=== PATIENT | female | born 1930 | race Caucasian/White ===

== ENCOUNTER 2016-09-20 15:37 | Emergency (ER) | payer OTHER, MEDICARE ==
--- NOTE | 2016-09-20 18:58 | DIAGNOSTIC IMAGING REPORT ---
PROCEDURE: CT ABD/PELVIS WITH CONTRAST INDICATION: Right flank pain. TECHNIQUE: 100 ml of Isovue 300 were injected intravenously and axial images were obtained of the entire abdomen and pelvis with sagittal and coronal reformations. COMPARISON: None. FINDINGS: ABDOMEN: Findings suggest moderate to marked mucosal thickening of the a ventral gastric antrum with possible ulcer. Bowel pattern is otherwise normal. Gallbladder, liver, spleen, pancreas, kidneys (1.8 cm simple left renal cyst), and aorta (moderate calcified atheromatous changes) are normal. Bowel pattern is normal, including appendix. Mild biconvex scoliosis with marked degenerative changes of the lumbar spine. Mild to moderate parenchymal scarring at the lung bases PELVIS: Uterus and adnexal structures are normal. No evidence of free fluid. IMPRESSION: 1. Findings suggest mucosal thickening of the ventral gastric antrum with possible gastric ulcer. Considered peptic ulcer disease or neoplastic ulcer. 2. Mild biconvex scoliosis with marked degenerative changes of the lumbar spine. 3. Otherwise negative CT abdomen and pelvis. 4. Findings discussed with PHILLIP Kidd. All CT scans at this facility use dose modulation, iterative reconstruction, and/or weight-based dosing when appropriate to reduce radiation dose to as low as reasonably achievable.
--- NOTE | 2016-09-20 19:26 | ED NURSING NOTES ---
Clinical Report - Nurses [facility] [address] [place] [address] 09/20/2016 15:38 Patient: JOSE STEVENSON TRIAGE Triage time 16:02. Acuity: LEVEL 3. Chief Complaint: BACK PAIN. Alert. No acute distress. BUCK COMA SCORE: Buck Coma Scale: 15- eyes open spontaneously (4); best verbal response- oriented x 4 (5); best motor response- obeys commands (6). --16:15 Rachna Hinton R.N. 16:02 09/20/16. BP: 160/84. HR: 72. RR: 18. O2 saturation: 98% on room air. Temp: 98.1 F (oral). Pain level now: 10/12. --16:15 Rachna Hinton R.N. Chief Complaint: (Dull back pain all across lower back, radiating around to abdomen RLQ. Started when patient had a GLF at [facility] around 2.5 weeks ago. Patient had hands full, hand hand on car door, slipped, and fell.). --17:10 Michael Cox R.N. Weight: 59.4 kg stated. Height/Length: 64 inches Per Patient. BMI: 22.5. --16:07 Rachna Hinton R.N. Medications ASA Oral 81 mg, daily. --16:09 Rachna Hinton R.N. Calcium 500 Oral. --16:09 Rachna Hinton R.N. Fluticasone Propionate Nasal, daily. --16:10 Rachna Hinton R.N. Folic Acid Oral (Tablet 400 mcg), daily. --16:10 Rachna Hinton R.N. Glucosamine Oral (Capsule 500 mg), daily. --16:10 Rachna Hinton R.N. Vicodin Oral, as needed. --16:11 Rachna Hinton R.N. Lovastatin Oral (Tablet 40 mg), daily. --16:11 Rachna Hinton R.N. Methocarbamol Oral (Tablet 500 mg), 3x a day as needed. --16:11 Rachna Hinton R.N. Naproxen Oral 375 mg, 2x a day. --16:12 Rachna Hinton R.N. Omeprazole Oral 20 mg, daily. --16:12 Rachna Hinton R.N. PARoxetine HCl Oral (Tablet 20 mg), daily. --16:12 Rachna Hinton R.N. Salsalate Oral (Tablet 500 mg), bid. --16:13 Rachna Hinton R.N. Sucralfate Oral 1 gm, 4x a day. --16:13 Rachna Hinton R.N. Allergies Sulfa Antibiotics. --16:05 Rachna Hinton R.N. History Arrived by private vehicle. Historian: patient. Unaccompanied. Primary physician ([place]). Onset. (about 3 weeks ago). History of recent trauma- fall. Occurred at a store. SOCIAL HX: Never smoker. Regular alcohol use; consumes liquor daily. No drug use. FALL RISK ASSESSMENT: Fall risk assessment completed. No fall risk identified. FUNCTIONAL ASSESSMENT: Functional assessment: no impairments noted. LEARNING NEEDS ASSESSMENT: The learning needs assessment revealed no barriers. --16:15 Rachna Hinton R.N. Treatment APPLICATIONS SUPPORT SPECIALIST: (prescribed vicodin prn). --17:10 Michael Cox R.N. PROBLEMS: Reflux. Hyperlipidemia. Depression. Arthritis. Ulcer. --16:07 Rachna Hinton R.N. ADDITIONAL SURGERIES: no known surgeries. Assessment GENERAL / NEURO / PSYCH: Alert. Oriented X 4. Appears in no acute distress. Patient appears calm and cooperative. RESPIRATORY: Respirations not labored. SKIN: Skin is warm and dry. --16:15 Rachna Hinton R.N. Interventions ID and allergy band on patient. To waiting room. --16:15 Rachna Hinton R.N. PHYSICAL ASSESSMENT Ambulatory to room. GENERAL / NEURO / PSYCH: Alert. Oriented X 4. Appears in pain. RESPIRATORY: Respirations not labored. Chest nontender. Breath sounds within normal limits. CVS: Normal heart rate and rhythm. Capillary refill less than 2 seconds. GI / : Abdomen soft. Abdominal tenderness (radiating pain to the RLQ from back). Bowel sounds within normal limits. EXTREMITIES: Sensation intact in extremities. ROM of extremities within normal limits. BACK: Normal inspection of the neck and back. No neck or back tenderness. ROM of neck and back within normal limits. --17:14 Michael Cox R.N. NURSING PROGRESS NOTES The plan of care for this patient has been created. Patient gowned. Head of bed elevated. Reassurance given. Two patient identifiers checked. Call light placed in reach. Side rails up x 1. Bed placed in lowest position. Brakes of bed on. Patient ready for evaluation- chart flagged and ED physician notified. --17:11 Michael Cox R.N. 17:14 09/20/16. BP: 151/71. HR: 73. RR: 15. O2 saturation: 100% on room air. Temp: deferred. Pain level now: 10/12. --17:17 Michael Cox R.N. ( Spoke with patient about placing an IV for access and to draw labs on basis of protocol. Patient stated she had blood drawn at clinic earlier today and prefers to not have an IV here in the ED. Left room and located paperwork faxed from [email or web address]. Patient had CMP drawn and processed today, 09/20/16. Paperwork is on chart. No IV placed in patient.). --17:41 Michael Cox R.N. 18:18 09/20/2016 Site #1 started via IV in the left antecubital space with an 20g angiocath, with aseptic technique and good blood return; one attempt. Saline lock flushed with saline. --18:24 Michael Cox R.N. 18:24 09/20/2016 Toradol IVP 30 mg given over 2 minute(s) via site #1. Allergies verified and confirmed 5 rights. IV patency established. IV site checked: no pain, redness, or swelling. IV flushed thoroughly pre- and post-medication administration. IVP given by RN. --18:24 Michael Cox R.N. Patient transported to CT by stretcher with tech. --18:27 Michael Cox R.N. Patient returned from CT by stretcher with tech. (18:40). --18:49 Michael Cox R.N. Care transferred and report given (report given to ANJU Wilcox (at 1918)). --19:24 Michael Cox R.N. 19:48 09/20/2016 GI COCKTAIL WHITE (Simethicone) PO Oral Suspension 30 mL given. Allergies verified and confirmed 5 rights. --19:53 Kimberlee Marley R.N. DISPOSITION / DISCHARGE 19:48 09/20/2016 Site #1 removed upon discharge. Catheter intact. Bandage applied. --19:53 Kimberlee Marley R.N. Departure time: 19:50 Sep 20 2016. Condition at departure: improved. No learning barriers present. Discharge instructions provided and reviewed with the patient. Reviewed medication(s) side effects, precautions, dosing and course information. Prescription(s) given to the patient. Reviewed referral to a rehabilitation team lead for followup. Patient verbalized understanding. Written instructions provided in Tunisian. The patient was discharged home. She left the Emergency Department ambulatory and via private vehicle. Patient driving. FALL RISK ASSESSMENT: Fall risk assessment completed. No fall risk identified. --19:55 Kimberlee Marley R.N. 19:53 09/20/16. BP: 169/72. HR: 62. RR: 16. O2 saturation: 100%. Pain level now: 5/10. --19:55 Kimberlee Marley R.N. Locked/Released at 09/22/2016 13:17 by Kimberlee Marley R.N.
--- NOTE | 2016-09-20 19:26 | ED CLINICAL REPORT ---
Clinical Report - Physicians/Mid Levels [facility] [address] [place] [address] 09/20/2016 15:38 Patient: JOSE STEVENSON Time Seen: 17:46; initial patient contact, initial documentation, patient care assumed. Arrived- By private vehicle. Historian- patient. HISTORY OF PRESENT ILLNESS Chief Complaint: BACK PAIN. It is described as being moderate in degree and in the area of the mid lumbar spine and lower lumbar spine and radiating to the abdomen. The quality is noted to be "pain". Modifying factors. Not worsened by anything. Not relieved by anything. Onset- about 2 1/2 weeks ago and it is still present. No bladder dysfunction, bowel dysfunction, sensory loss or motor loss. Additional history - denies any new injury/trauma. Patient notes an injury but denies injury to the head or neck. Mechanism of injury- she fell while walking. (store). No other injury. Similar symptoms previously: None. Recent medical care: The patient was seen recently in the office. ( this is 5th dr visit for same thing, went to 4 other office visits, after fall, xrays done, no fx, still hurting, so f/u visit they did mri, and they found bulging disc, still hurting so went back, no better so went again today, that dr told her to go to er, blood work was normal, and he did not know what else to do, has f/u with ortho for her back). REVIEW OF SYSTEMS No difficulty with urination, urinary frequency, hematuria, difficulty breathing or chest pain. She has had moderate, constant abdominal pain. The pain is described as located in the right upper quadrant, epigastrium and left upper quadrant. All systems otherwise negative, except as recorded above. PAST HISTORY See nurses notes. PROBLEMS: Reflux. Hyperlipidemia. Depression. Arthritis. Ulcer. --16:07 Rachna Hinton R.N. ADDITIONAL SURGERIES: no known surgeries. SOCIAL HISTORY Never smoker. Heavy alcohol use; consumes liquor daily. No drug use. No recent travel. Is a local resident. FAMILY HISTORY Negative. ADDITIONAL NOTES The nursing notes have been reviewed with agreement regarding the chief complaint, HPI, ROS, PMH and patient medications and allergies. PHYSICAL EXAM Vital Signs: 09/20/2016 16:02 BP: 160/84. HR: 72. RR: 18. O2 saturation: 98%. Temp: 98.1 F. Pain level now: 8. Have been reviewed as normal and appear to be correct. Appearance: Alert. No acute distress. HEENT: Normal external inspection. Eyes: Pupils equal, round and reactive to light. Neck: Normal inspection. Neck nontender. Painless ROM. CVS: Heart sounds normal. Pulses normal. Respiratory: No respiratory distress. Breath sounds normal. Abdomen: No visible injury. Soft and nontender. Bowel sounds normal. No organomegaly. No mass. Back: Normal inspection. No tenderness. Painless ROM. Skin: Skin warm and dry. Normal skin color. No rash. Normal skin turgor. Extremities: Extremities exhibit normal ROM. Extremities nontender. Neuro: Oriented X 3. Mood/affect normal. No motor deficit. No sensory deficit. LABS, X-RAYS, AND EKG CT Abdomen: . IMPRESSION: 1. Findings suggest mucosal thickening of the ventral gastric antrum with possible gastric ulcer. Considered peptic ulcer disease or neoplastic ulcer. 2. Mild biconvex scoliosis with marked degenerative changes of the lumbar spine. 3. Otherwise negative CT abdomen and pelvis. 4. Findings discussed with PHILLIP Kidd. All CT scans at this facility use dose modulation, iterative reconstruction, and/or weight-based dosing when appropriate to reduce radiation dose to as low as reasonably achievable. Electronically Final signed by:Rudi Mejia MD 09/20/2016 6:57:52 PM. The study was interpreted by the radiologist and discussed with the radiologist. Interpretation time: 18:55. Laboratory Tests: UA-Culture if indicated: (JOSE M: 09/20/2016 17:02) ( MsgRcvd 09/20/2016 17:54) Final results Test Result Flag Units (Reference) URINE COLOR YELLOW URINE APPEARANCE CLEAR URINE GLUCOSE NEGATIVE (NEGATIVE) URINE BILIRUBIN NEGATIVE (NEGATIVE) URINE KETONE TRACE (NEGATIVE) URINE SPECIFIC GRAVITY 1.025 (1.010-1.030) URINE PH 6.0 (5.0-8.0) URINE PROTEIN NEGATIVE (NEGATIVE) URINE UROBILINOGEN 0.2 EU/dL (0.2-1.0) URINE NITRITE NEGATIVE (NEGATIVE) URINE BLOOD NEGATIVE (NEGATIVE) URINE LEUK ESTERASE NEGATIVE (NEGATIVE) URINE RBC NONE SEEN rbc/hpf (0-1) URINE WBC 0-1 wbc/hpf (0-1) URINE EPITHELIAL CELLS 0-1 EPI/hpf (0-5) URINE BACTERIA NONE SEEN (NONE SEEN) URINE COMMENT CULT NOT INDICATED URINE CULTURES ARE SET-UP BASED ON THE FOLLOWING CRITERIA:POSITIVE NITRITEPOSITIVE LEUKOCYTE ESTERASEGREATER THAN 10 WHITE BLOOD CELLSMODERATE (2+) OR GREATER BACTERIA CBC w Diff: (JOSE M: 09/20/2016 18:40) ( MsgRcvd 09/20/2016 19:00) Final results Test Result Flag Units (Reference) WHITE BLOOD COUNT 7.1 K/uL (4.5-11.5) RED BLOOD COUNT 3.85 L M/uL (4.00-5.20) HEMOGLOBIN 12.1 gm/dL (12.0-16.0) HEMATOCRIT 35.9 L % (36.0-46.0) MEAN CELL VOLUME 93 fL (80-100) MEAN CORPUSCULAR HGB 32 pg (26-34) MEAN CORPUSCULAR HGB CONC 34 g/dL (31-37) RED CELL DISTRIBUTION WIDTH 15.8 H % (11.6-14.8) PLATELET COUNT 229 K/uL (150-400) NEUTROPHIL % 65.0 % (50-75) LYMPH % 21.5 L % (25-40) MONO % 9.1 % (3-14) EOSINOPHIL % 3.7 % (0-4) BASOPHIL % 0.7 % (0-2) . PROGRESS AND PROCEDURES Course of Care: CMP results reviewed from clinic today, normal. 09/20/2016 17:14 BP: 151/71. HR: 73. RR: 15. O2 saturation: 100%. Pain level now: 8/10. Vital Signs: have been reviewed as normal and appear to be correct. Patient counseled in person regarding the patient's stable condition, test results and diagnosis. 19:08. Differential Diagnosis: I considered gastritis, gastroenteritis, peptic ulcer disease, gastroesophageal reflux disease, acute appendicitis, diverticulitis, colon cancer, Crohn's disease, intussusception, obstipation, biliary colic, cholecystitis, cholelithiasis, hepatitis, pancreatitis, common bile duct obstruction and ureterolithiasis as a possible cause of abdominal pain in this patient. This is a partial list of diagnoses considered. Above considerations are based on history, physical exam, reassessment, laboratory data and other information. Differential diagnosis was discussed with patient and patient's family. Disposition: Discharged home in good and improved condition (19:25). Condition: good and stable. CLINICAL IMPRESSION Acute abdominal pain of undetermined cause. INSTRUCTIONS Warnings: GENERAL WARNINGS: Return or contact your physician immediately if your condition worsens or changes unexpectedly, if not improving as expected, or if other problems arise. worsening symptoms. Prescription Medications: Protonix 40 mg tablets: Take 1 tablet orally once daily. Dispense thirty (30). No refills. Substitution is permissible. Understanding of the discharge instructions verbalized by patient. Follow-up with: Hua Emanuel MD, Gastroenterology, , [facility] , [place], [address]; Galileo Quiroz MD, Gastroenterology, [address] [place] [address], [address] [place] [address], [address], [place], [address]; Jennie Mautte MD, Gastroenteroloy, [address] [place] [address], [address] [place] [address] [address], [place], [address]; Fam Haider MD, Gastroenteroloy, , [address] [place] [address] [address], [place], [address]; Mundo Rodrigues MD, Gastroenteroloy, , [address] [place] [address] [address], [place], [address] Follow up in about two even if well. Call for an appointment. Summary of care provided to patient and family. (Electronically signed by Raquel Caldwell A.R.N.P. 09/20/2016 21:17)
--- NOTE | 2016-09-20 19:26 | ED CLINICAL REPORT ---
Clinical Report - Physicians/Mid Levels [facility] [address] [place] [address] 09/20/2016 15:38 Patient: JOSE STEVENSON Time Seen: 17:46; initial patient contact, initial documentation, patient care assumed. Arrived- By private vehicle. Historian- patient. HISTORY OF PRESENT ILLNESS Chief Complaint: BACK PAIN. It is described as being moderate in degree and in the area of the mid lumbar spine and lower lumbar spine and radiating to the abdomen. The quality is noted to be "pain". Modifying factors. Not worsened by anything. Not relieved by anything. Onset- about 2 1/2 weeks ago and it is still present. No bladder dysfunction, bowel dysfunction, sensory loss or motor loss. Additional history - denies any new injury/trauma. Patient notes an injury but denies injury to the head or neck. Mechanism of injury- she fell while walking. (store). No other injury. Similar symptoms previously: None. Recent medical care: The patient was seen recently in the office. ( this is 5th dr visit for same thing, went to 4 other office visits, after fall, xrays done, no fx, still hurting, so f/u visit they did mri, and they found bulging disc, still hurting so went back, no better so went again today, that dr told her to go to er, blood work was normal, and he did not know what else to do, has f/u with ortho for her back). REVIEW OF SYSTEMS No difficulty with urination, urinary frequency, hematuria, difficulty breathing or chest pain. She has had moderate, constant abdominal pain. The pain is described as located in the right upper quadrant, epigastrium and left upper quadrant. All systems otherwise negative, except as recorded above. PAST HISTORY See nurses notes. PROBLEMS: Reflux. Hyperlipidemia. Depression. Arthritis. Ulcer. --16:07 Rachna Hinton R.N. ADDITIONAL SURGERIES: no known surgeries. SOCIAL HISTORY Never smoker. Heavy alcohol use; consumes liquor daily. No drug use. No recent travel. Is a local resident. FAMILY HISTORY Negative. ADDITIONAL NOTES The nursing notes have been reviewed with agreement regarding the chief complaint, HPI, ROS, PMH and patient medications and allergies. PHYSICAL EXAM Vital Signs: 09/20/2016 16:02 BP: 160/84. HR: 72. RR: 18. O2 saturation: 98%. Temp: 98.1 F. Pain level now: 8. Have been reviewed as normal and appear to be correct. Appearance: Alert. No acute distress. HEENT: Normal external inspection. Eyes: Pupils equal, round and reactive to light. Neck: Normal inspection. Neck nontender. Painless ROM. CVS: Heart sounds normal. Pulses normal. Respiratory: No respiratory distress. Breath sounds normal. Abdomen: No visible injury. Soft and nontender. Bowel sounds normal. No organomegaly. No mass. Back: Normal inspection. No tenderness. Painless ROM. Skin: Skin warm and dry. Normal skin color. No rash. Normal skin turgor. Extremities: Extremities exhibit normal ROM. Extremities nontender. Neuro: Oriented X 3. Mood/affect normal. No motor deficit. No sensory deficit. LABS, X-RAYS, AND EKG CT Abdomen: . IMPRESSION: 1. Findings suggest mucosal thickening of the ventral gastric antrum with possible gastric ulcer. Considered peptic ulcer disease or neoplastic ulcer. 2. Mild biconvex scoliosis with marked degenerative changes of the lumbar spine. 3. Otherwise negative CT abdomen and pelvis. 4. Findings discussed with PHILLIP Kidd. All CT scans at this facility use dose modulation, iterative reconstruction, and/or weight-based dosing when appropriate to reduce radiation dose to as low as reasonably achievable. Electronically Final signed by:Rudi Mejia MD 09/20/2016 6:57:52 PM. The study was interpreted by the radiologist and discussed with the radiologist. Interpretation time: 18:55. Laboratory Tests: UA-Culture if indicated: (JOSE M: 09/20/2016 17:02) ( MsgRcvd 09/20/2016 17:54) Final results Test Result Flag Units (Reference) URINE COLOR YELLOW URINE APPEARANCE CLEAR URINE GLUCOSE NEGATIVE (NEGATIVE) URINE BILIRUBIN NEGATIVE (NEGATIVE) URINE KETONE TRACE (NEGATIVE) URINE SPECIFIC GRAVITY 1.025 (1.010-1.030) URINE PH 6.0 (5.0-8.0) URINE PROTEIN NEGATIVE (NEGATIVE) URINE UROBILINOGEN 0.2 EU/dL (0.2-1.0) URINE NITRITE NEGATIVE (NEGATIVE) URINE BLOOD NEGATIVE (NEGATIVE) URINE LEUK ESTERASE NEGATIVE (NEGATIVE) URINE RBC NONE SEEN rbc/hpf (0-1) URINE WBC 0-1 wbc/hpf (0-1) URINE EPITHELIAL CELLS 0-1 EPI/hpf (0-5) URINE BACTERIA NONE SEEN (NONE SEEN) URINE COMMENT CULT NOT INDICATED URINE CULTURES ARE SET-UP BASED ON THE FOLLOWING CRITERIA:POSITIVE NITRITEPOSITIVE LEUKOCYTE ESTERASEGREATER THAN 10 WHITE BLOOD CELLSMODERATE (2+) OR GREATER BACTERIA CBC w Diff: (JOSE M: 09/20/2016 18:40) ( MsgRcvd 09/20/2016 19:00) Final results Test Result Flag Units (Reference) WHITE BLOOD COUNT 7.1 K/uL (4.5-11.5) RED BLOOD COUNT 3.85 L M/uL (4.00-5.20) HEMOGLOBIN 12.1 gm/dL (12.0-16.0) HEMATOCRIT 35.9 L % (36.0-46.0) MEAN CELL VOLUME 93 fL (80-100) MEAN CORPUSCULAR HGB 32 pg (26-34) MEAN CORPUSCULAR HGB CONC 34 g/dL (31-37) RED CELL DISTRIBUTION WIDTH 15.8 H % (11.6-14.8) PLATELET COUNT 229 K/uL (150-400) NEUTROPHIL % 65.0 % (50-75) LYMPH % 21.5 L % (25-40) MONO % 9.1 % (3-14) EOSINOPHIL % 3.7 % (0-4) BASOPHIL % 0.7 % (0-2) . PROGRESS AND PROCEDURES Course of Care: CMP results reviewed from clinic today, normal. 09/20/2016 17:14 BP: 151/71. HR: 73. RR: 15. O2 saturation: 100%. Pain level now: 8/10. Vital Signs: have been reviewed as normal and appear to be correct. Patient counseled in person regarding the patient's stable condition, test results and diagnosis. 19:08. Differential Diagnosis: I considered gastritis, gastroenteritis, peptic ulcer disease, gastroesophageal reflux disease, acute appendicitis, diverticulitis, colon cancer, Crohn's disease, intussusception, obstipation, biliary colic, cholecystitis, cholelithiasis, hepatitis, pancreatitis, common bile duct obstruction and ureterolithiasis as a possible cause of abdominal pain in this patient. This is a partial list of diagnoses considered. Above considerations are based on history, physical exam, reassessment, laboratory data and other information. Differential diagnosis was discussed with patient and patient's family. Disposition: Discharged home in good and improved condition (19:25). Condition: good and stable. CLINICAL IMPRESSION Acute abdominal pain of undetermined cause. INSTRUCTIONS Warnings: GENERAL WARNINGS: Return or contact your physician immediately if your condition worsens or changes unexpectedly, if not improving as expected, or if other problems arise. worsening symptoms. Prescription Medications: Protonix 40 mg tablets: Take 1 tablet orally once daily. Dispense thirty (30). No refills. Substitution is permissible. Understanding of the discharge instructions verbalized by patient. Follow-up with: Hua Emanuel MD, Gastroenterology, , [facility] , [place], [address]; Galileo Quiroz MD, Gastroenterology, [address] [place] [address], [address] [place] [address], [address], [place], [address]; Jennie Matute MD, Gastroenteroloy, [address] [place] [address], [address] [place] [address] [address], [place], [address]; Fam Haider MD, Gastroenteroloy, , [address] [place] [address] [address], [place], [address]; Mundo Rodrigues MD, Gastroenteroloy, , [address] [place] [address] [address], [place], [address] Follow up in about two even if well. Call for an appointment. Summary of care provided to patient and family. (Electronically signed by Raquel Caldwell A.R.N.P. 09/20/2016 21:17)
--- NOTE | 2016-09-20 19:26 | ED ORDER SUMMARY ---
..... Patient: JOSE STEVENSON OrderSheet [facility] VisitID: [id number] [place] [address] 85y, F Registration Date/Time: 09/20/2016 ORDER SHEET Weight: 59.4 kg (stated) Allergies: Sulfa Antibiotics GENERAL ORDERS: UA-Culture if indicated Urgent (17:22 09/20/2016 IJurca R.N. per protocol) (17:22 IJurca R.N.) CT Abd/Pel w Cont (No) (pending) Urgent (17:56 09/20/2016 HBivens A.R.N.P.) (Ack 18:03 LNations ER Tech1) (18:48 MCampbell) CBC w Diff Urgent (17:56 09/20/2016 HBivens A.R.N.P.) (Ack 18:03 LNations ER Tech1) (Cancelled: Verbal per Uwdklhvti39:16 IJurca R.N.) CMP Urgent (17:56 09/20/2016 HBivens A.R.N.P.) (Ack 18:03 LNations ER Tech1) (Cancelled: Verbal per Jscoomxke89:16 IJurca R.N.) Lipase Urgent (17:56 09/20/2016 HBivens A.R.N.P.) (Ack 18:03 LNations ER Tech1) (Cancelled: Verbal per Reomagkcw24:16 IJurca R.N.) Amylase Urgent (17:56 09/20/2016 HBivens A.R.N.P.) (Ack 18:03 LNations ER Tech1) (Cancelled: Verbal per Zcazrbryi23:16 IJurca R.N.) CBC w Diff Urgent (18:32 09/20/2016 HBivens A.R.N.P.) (Ack 18:36 LNations ER Tech1) (19:14 IJurca R.N.) MEDICATION ORDERS: GI Cocktail WHITE PO 30 mL with Lidocaine Viscous Mouth/Throat 15 mL, Maalox Plus Oral 15 mL (NOW) (19:24 09/20/2016 HBivens A.R.N.P.) (19:53 KKnebel R.N.) IV FLUIDS: Toradol IV 30 mg (NOW) (17:56 09/20/2016 HBivens A.R.N.P.) (Ack 18:03 IJurca R.N.) (18:24 IJurca R.N.) IV Saline Lock (17:56 09/20/2016 HBivens A.R.N.P.) (Ack 18:03 IJurca R.N.) (18:24 IJurca R.N.) ORDER SHEET NOTES: [Electronically signed by Raquel CaldwellR.N.P. (21:09/20/2016)] [Electronically signed by Kimberlee Marley R.N. (:09/22/2016)] [Electronically locked/signed by Kimberlee Marley R.N. (:09/22/2016)]
--- NOTE | 2016-09-20 19:26 | ED ORDER SUMMARY ---
..... Patient: JOSE STEVENSON OrderSheet [facility] VisitID: [id number] [place] [address] 85y, F Registration Date/Time: 09/20/2016 ORDER SHEET Weight: 59.4 kg (stated) Allergies: Sulfa Antibiotics GENERAL ORDERS: UA-Culture if indicated Urgent (17:22 09/20/2016 IJurca R.N. per protocol) (17:22 IJurca R.N.) CT Abd/Pel w Cont (No) (pending) Urgent (17:56 09/20/2016 HBivens A.R.N.P.) (Ack 18:03 LNations ER Tech1) (18:48 MCampbell) CBC w Diff Urgent (17:56 09/20/2016 HBivens A.R.N.P.) (Ack 18:03 LNations ER Tech1) (Cancelled: Verbal per Onamhwfle62:16 IJurca R.N.) CMP Urgent (17:56 09/20/2016 HBivens A.R.N.P.) (Ack 18:03 LNations ER Tech1) (Cancelled: Verbal per Glcwctwgc14:16 IJurca R.N.) Lipase Urgent (17:56 09/20/2016 HBivens A.R.N.P.) (Ack 18:03 LNations ER Tech1) (Cancelled: Verbal per Iglslasis73:16 IJurca R.N.) Amylase Urgent (17:56 09/20/2016 HBivens A.R.N.P.) (Ack 18:03 LNations ER Tech1) (Cancelled: Verbal per Okokypiji40:16 IJurca R.N.) CBC w Diff Urgent (18:32 09/20/2016 HBivens A.R.N.P.) (Ack 18:36 LNations ER Tech1) (19:14 IJurca R.N.) MEDICATION ORDERS: GI Cocktail WHITE PO 30 mL with Lidocaine Viscous Mouth/Throat 15 mL, Maalox Plus Oral 15 mL (NOW) (19:24 09/20/2016 HBivens A.R.N.P.) (19:53 KKnebel R.N.) IV FLUIDS: Toradol IV 30 mg (NOW) (17:56 09/20/2016 HBivens A.R.N.P.) (Ack 18:03 IJurca R.N.) (18:24 IJurca R.N.) IV Saline Lock (17:56 09/20/2016 HBivens A.R.N.P.) (Ack 18:03 IJurca R.N.) (18:24 IJurca R.N.) ORDER SHEET NOTES: [Electronically signed by Raquel CaldwellR.N.P. (21:09/20/2016)] [Electronically signed by Kimberlee Marley R.N. (:09/22/2016)] [Electronically locked/signed by Kimberlee Marley R.N. (:09/22/2016)]
--- NOTE | 2016-09-20 19:26 | ED NURSING NOTES ---
Clinical Report - Nurses [facility] [address] [place] [address] 09/20/2016 15:38 Patient: JOSE STEVENSON TRIAGE Triage time 16:02. Acuity: LEVEL 3. Chief Complaint: BACK PAIN. Alert. No acute distress. BUCK COMA SCORE: Buck Coma Scale: 15- eyes open spontaneously (4); best verbal response- oriented x 4 (5); best motor response- obeys commands (6). --16:15 Rachna Hinton R.N. 16:02 09/20/16. BP: 160/84. HR: 72. RR: 18. O2 saturation: 98% on room air. Temp: 98.1 F (oral). Pain level now: 10/12. --16:15 Rachna Hinton R.N. Chief Complaint: (Dull back pain all across lower back, radiating around to abdomen RLQ. Started when patient had a GLF at [facility] around 2.5 weeks ago. Patient had hands full, hand hand on car door, slipped, and fell.). --17:10 Michael Cox R.N. Weight: 59.4 kg stated. Height/Length: 64 inches Per Patient. BMI: 22.5. --16:07 Rachna Hinton R.N. Medications ASA Oral 81 mg, daily. --16:09 Rachna Hinton R.N. Calcium 500 Oral. --16:09 Rachna Hinton R.N. Fluticasone Propionate Nasal, daily. --16:10 Rachna Hinton R.N. Folic Acid Oral (Tablet 400 mcg), daily. --16:10 Rachna Hitnon R.N. Glucosamine Oral (Capsule 500 mg), daily. --16:10 Rachna Hinton R.N. Vicodin Oral, as needed. --16:11 Rachna Hinton R.N. Lovastatin Oral (Tablet 40 mg), daily. --16:11 Rachna Hinton R.N. Methocarbamol Oral (Tablet 500 mg), 3x a day as needed. --16:11 Rachna Hinton R.N. Naproxen Oral 375 mg, 2x a day. --16:12 Rachna Hinton R.N. Omeprazole Oral 20 mg, daily. --16:12 Rachna Hinton R.N. PARoxetine HCl Oral (Tablet 20 mg), daily. --16:12 Rachna Hinton R.N. Salsalate Oral (Tablet 500 mg), bid. --16:13 Rachna Hinton R.N. Sucralfate Oral 1 gm, 4x a day. --16:13 Rachna Hinton R.N. Allergies Sulfa Antibiotics. --16:05 Rachna Hinton R.N. History Arrived by private vehicle. Historian: patient. Unaccompanied. Primary physician ([place]). Onset. (about 3 weeks ago). History of recent trauma- fall. Occurred at a store. SOCIAL HX: Never smoker. Regular alcohol use; consumes liquor daily. No drug use. FALL RISK ASSESSMENT: Fall risk assessment completed. No fall risk identified. FUNCTIONAL ASSESSMENT: Functional assessment: no impairments noted. LEARNING NEEDS ASSESSMENT: The learning needs assessment revealed no barriers. --16:15 Rachna Hinton R.N. Treatment WIDE AREA NETWORK ADMINISTRATOR: (prescribed vicodin prn). --17:10 Micheal Cox R.N. PROBLEMS: Reflux. Hyperlipidemia. Depression. Arthritis. Ulcer. --16:07 Rachna Hinton R.N. ADDITIONAL SURGERIES: no known surgeries. Assessment GENERAL / NEURO / PSYCH: Alert. Oriented X 4. Appears in no acute distress. Patient appears calm and cooperative. RESPIRATORY: Respirations not labored. SKIN: Skin is warm and dry. --16:15 Rachna Hinton R.N. Interventions ID and allergy band on patient. To waiting room. --16:15 Rachna Hinton R.N. PHYSICAL ASSESSMENT Ambulatory to room. GENERAL / NEURO / PSYCH: Alert. Oriented X 4. Appears in pain. RESPIRATORY: Respirations not labored. Chest nontender. Breath sounds within normal limits. CVS: Normal heart rate and rhythm. Capillary refill less than 2 seconds. GI / : Abdomen soft. Abdominal tenderness (radiating pain to the RLQ from back). Bowel sounds within normal limits. EXTREMITIES: Sensation intact in extremities. ROM of extremities within normal limits. BACK: Normal inspection of the neck and back. No neck or back tenderness. ROM of neck and back within normal limits. --17:14 Michael Cox R.N. NURSING PROGRESS NOTES The plan of care for this patient has been created. Patient gowned. Head of bed elevated. Reassurance given. Two patient identifiers checked. Call light placed in reach. Side rails up x 1. Bed placed in lowest position. Brakes of bed on. Patient ready for evaluation- chart flagged and ED physician notified. --17:11 Michael Cox R.N. 17:14 09/20/16. BP: 151/71. HR: 73. RR: 15. O2 saturation: 100% on room air. Temp: deferred. Pain level now: 10/12. --17:17 Michael Cox R.N. ( Spoke with patient about placing an IV for access and to draw labs on basis of protocol. Patient stated she had blood drawn at clinic earlier today and prefers to not have an IV here in the ED. Left room and located paperwork faxed from [employer]. Patient had CMP drawn and processed today, 09/20/16. Paperwork is on chart. No IV placed in patient.). --17:41 Michael Cox R.N. 18:18 09/20/2016 Site #1 started via IV in the left antecubital space with an 20g angiocath, with aseptic technique and good blood return; one attempt. Saline lock flushed with saline. --18:24 Michael Cox R.N. 18:24 09/20/2016 Toradol IVP 30 mg given over 2 minute(s) via site #1. Allergies verified and confirmed 5 rights. IV patency established. IV site checked: no pain, redness, or swelling. IV flushed thoroughly pre- and post-medication administration. IVP given by RN. --18:24 Michael Cox R.N. Patient transported to CT by stretcher with tech. --18:27 Michael Cox R.N. Patient returned from CT by stretcher with tech. (18:40). --18:49 Michael Cox R.N. Care transferred and report given (report given to ANJU Wilcox (at 1918)). --19:24 Michael Cox R.N. 19:48 09/20/2016 GI COCKTAIL WHITE (Simethicone) PO Oral Suspension 30 mL given. Allergies verified and confirmed 5 rights. --19:53 Kimberlee Marley R.N. DISPOSITION / DISCHARGE 19:48 09/20/2016 Site #1 removed upon discharge. Catheter intact. Bandage applied. --19:53 Kimberlee Marley R.N. Departure time: 19:50 Sep 20 2016. Condition at departure: improved. No learning barriers present. Discharge instructions provided and reviewed with the patient. Reviewed medication(s) side effects, precautions, dosing and course information. Prescription(s) given to the patient. Reviewed referral to a deboning team leader for followup. Patient verbalized understanding. Written instructions provided in [place]. The patient was discharged home. She left the Emergency Department ambulatory and via private vehicle. Patient driving. FALL RISK ASSESSMENT: Fall risk assessment completed. No fall risk identified. --19:55 Kimberlee Marley R.N. 19:53 09/20/16. BP: 169/72. HR: 62. RR: 16. O2 saturation: 100%. Pain level now: 5/10. --19:55 Kimberlee Marley R.N. Locked/Released at 09/22/2016 13:17 by Kimberlee Marley R.N.
--- NOTE | 2016-09-22 13:18 | ED MAR SUMMARY ---
..... Medication Administration Record [facility] [address] [place] [address] Patient: JOSE STEVESNON Visit ID: [id number] 85y, F Weight: 59.4 kg Height/Length: 64 in BMI: 22.5 ALLERGIES: Sulfa Antibiotics Given 18:24 09/20/2016 Michael Cox RMylesNMyles Medication Administered: TORADOL [IVP], Dose: 30 mg IVP over 2 minute(s), Site: #1 left AC. Medication Ordered: Toradol IV 30 mg (NOW). Given 19:48 09/20/2016 Kimberlee Marley, RMylesNMyles Medication Administered: GI COCKTAIL WHITE [PO] (SIMETHICONE), Dose: 30 mL Oral Suspension PO. Medication Ordered: GI Cocktail WHITE PO 30 mL with Lidocaine Viscous Mouth/Throat 15 mL, Maalox Plus Oral 15 mL (NOW).
--- NOTE | 2016-09-22 13:18 | ED MED RECONCILIATION SUMMARY ---
Patient: JOSE STEVENSON Medication Reconciliation Report [facility] VisitID: [id number] [address] [place] [address] 85y, F Registration Date/Time: 09/20/2016 Weight: 59.4 kg Height/Length: 64 in. BMI: 22.5 ALLERGIES: Sulfa Antibiotics The patient's Home Medications are listed below: THE FOLLOWING MEDICATIONS NEED TO BE RECONCILED: ASA Oral 81 mg, daily Calcium 500 Oral Fluticasone Propionate Nasal, daily Folic Acid Oral (400 mcg), daily Glucosamine Oral (500 mg), daily Lovastatin Oral (40 mg), daily Methocarbamol Oral (500 mg), 3x a day Naproxen Oral 375 mg, 2x a day Omeprazole Oral 20 mg, daily PARoxetine HCl Oral (20 mg), daily Salsalate Oral (500 mg), bid Sucralfate Oral 1 gm, 4x a day Vicodin Oral The source(s) of the original Home Medication information: Not obtained. The following Medications were given to the patient in the Emergency Department: Toradol [IVP] IVP 30 mg, administered: 09/20/2016 6:24:00 PM GI COCKTAIL WHITE [PO] PO 30 mL, administered: 09/20/2016 7:48:00 PM The following Medications were prescribed to the patient: Protonix 40 mg tablets: Take 1 tablet orally once daily. Dispense thirty (30). No refills. Substitution is permissible. -- Raquel Caldwell A.R.N.P.
--- NOTE | 2016-09-22 13:18 | ED DISCHARGE INSTRUCTIONS ---
Patient: JOSE STEVENSON General Instructions [facility] VisitID: [id number] [address] [place] [address] 85y, F Registration Date/Time: 09/20/2016 Acute abdominal pain of undetermined cause. INSTRUCTIONS Warnings: GENERAL WARNINGS: Return or contact your physician immediately if your condition worsens or changes unexpectedly, if not improving as expected, or if other problems arise. worsening symptoms. Prescription Medications: Protonix 40 mg tablets: Take 1 tablet orally once daily. Dispense thirty (30). No refills. Substitution is permissible. Understanding of the discharge instructions verbalized by patient. Follow-up with: Hua Emanuel MD, Gastroenterology, , [address] [place] [address] Ave[address] , [place], [address]; Galileo Quiroz MD, Gastroenterology, [address] [place] [address], [address] [place] [address], [address], [place], [address]; Jennie Matute MD, Gastroenteroloy, , [address] [place] [address] [address], [place], [address]; Fam Haider MD, Gastroenteroloy, , [address] [place] [address] [address], [place], [address]; Mundo Rodrigues MD, Gastroenteroloy, [address] [place] [address], [address] [place] [address] [address], [place], [address] Follow up in about two even if well. Call for an appointment. Summary of care provided to patient and family. ADDITIONAL INFORMATION Abdominal Pain, Unknown Cause (Female) The exact cause of your abdominal (stomach) pain is not certain. This does not mean that this is something to worry about, or the right tests were not done. Everyone likes to know the exact cause of the problem, but sometimes with abdominal pain, there is no clear-cut cause, and this could be a good thing. The good news is that your symptoms can be treated, and you will feel better. Your condition does not seem serious now; however, sometimes the signs of a serious problem may take more time to appear. For this reason,it is important for you to watch for any new symptoms, problems,or worsening of your condition. Over the next few days, the abdominal pain may come and go, or be continuous. Other common symptoms can include nausea and vomiting. Sometimes it can be difficult to tell if you feel nauseous, you may just feel bad and not associate that feeling with nausea. Constipation, diarrhea, and a fever may go along with the pain. The pain may continue even if treated correctly over the following days. Depending on how things go, sometimes the cause can become clear and may require further or different treatment. Additional evaluations, medications, or tests may be needed. Home care Your health care provider may prescribe medications for pain, symptoms, or an infection. Follow the health care provider's instructions for taking these medications. General care Rest until your next exam. No strenuous activities. Try to find positions that ease discomfort. A small pillow placed on the abdomen may help relieve pain. Something warm on your abdomen (such as a heating pad) may help, but be careful not to burn yourself. Diet Do not force yourself to eat, especially if having cramps, vomiting, or diarrhea. Water is important so you do not get dehydrated. Soup may also be good. Sports drinks may also help, especially if they are not too acidic. Make sure you don't drink sugary drinks as this can make things worse. Take liquids in small amounts. Do not guzzle them. Caffeine sometimes makes the pain and cramping worse. Avoid dairy products if you have vomiting or diarrhea. Don't eat large amounts at a time. Wait a few minutes between bites. Eat a diet low in fiber (called a low-residue diet). Foods allowed include refined breads, white rice, fruit and vegetable juices without pulp, tender meats. These foods will pass more easily through the intestine. Avoid whole-grain foods, whole fruits and vegetables, meats, seeds and nuts, fried or fatty foods, dairy, alcohol and spicy foods until your symptoms go away. Follow-up care Follow up with your health care provider as instructed, or if your pain does not begin to improve in the next 24 hours. When to seek medical care Seek prompt medical care if any of the following occur: Pain gets worse or moves to the right lower abdomen New or worsening vomiting or diarrhea Swelling of the abdomen Unable to pass stool for more than three days Fever of 100.4F (38C) or higher, or as directed by your healthcare provider. Blood in vomit or bowel movements (dark red or black color) Jaundice (yellow color of eyes and skin) Weakness, dizziness Chest, arm, back, neck or jaw pain Unexpected vaginal bleeding or missed period Call 911 Call emergency services if any of the following occur: Trouble breathing Confusion Fainting or loss of consciousness Rapid heart rate Seizure Pantoprazole Sodium Gastro-resistant tablet What is this medicine? PANTOPRAZOLE (gaitan TOE pra zole) prevents the production of acid in the stomach. It is used to treat gastroesophageal reflux disease (GERD), inflammation of the esophagus, and Florencio-Quinn syndrome. How should I use this medicine? Take this medicine by mouth. Swallow the tablets whole with a drink of water. Follow the directions on the prescription label. Do not crush, break, or chew. Take your medicine at regular intervals. Do not take your medicine more often than directed. Talk to your museum informatics specialist regarding the use of this medicine in children. While this drug may be prescribed for children as young as 5 years for selected conditions, precautions do apply. What side effects may I notice from receiving this medicine? Side effects that you should report to your doctor or health medicare sales executive as soon as possible: allergic reactions like skin rash, itching or hives, swelling of the face, lips, or tongue bone, muscle or joint pain breathing problems chest pain or chest tightness dark yellow or brown urine dizziness fast, irregular heartbeat feeling faint or lightheaded fever or sore throat muscle spasm palpitations redness, blistering, peeling or loosening of the skin, including inside the mouth seizures tremors unusual bleeding or bruising unusually weak or tired yellowing of the eyes or skin Side effects that usually do not require medical attention (Report these to your doctor or health medicare sales executive if they continue or are bothersome.): constipation diarrhea dry mouth headache nausea What may interact with this medicine? Do not take this medicine with any of the following medications: atazanavir nelfinavir This medicine may also interact with the following medications: ampicillin delavirdine digoxin diuretics iron salts medicines for fungal infections like ketoconazole, itraconazole and voriconazole warfarin What if I miss a dose? If you miss a dose, take it as soon as you can. If it is almost time for your next dose, take only that dose. Do not take double or extra doses. Where should I keep my medicine? Keep out of the reach of children. Store at room temperature between 15 and 30 degrees C (59 and 86 degrees F). Protect from light and moisture. Throw away any unused medicine after the expiration date. What should I tell my health care provider before I take this medicine? They need to know if you have any of these conditions: liver disease low levels of magnesium in the blood an unusual or allergic reaction to omeprazole, lansoprazole, pantoprazole, rabeprazole, other medicines, foods, dyes, or preservatives or trying to get breast-feeding What should I watch for while using this medicine? It can take several days before your stomach pain gets better. Check with your doctor or health medicare sales executive if your condition does not start to get better, or if it gets worse. You may need blood work done while you are taking this medicine. You have been given the following additional information: Abdominal Pain, Unknown Cause, (Female) Pantoprazole Sodium Gastro-resistant tablet (Electronically signed by Raquel Caldwell A.R.N.P. 09/20/2016 21:17)
--- NOTE | 2016-09-22 13:18 | ED DISCHARGE INSTRUCTIONS ---
Patient: JOSE STEVENSON General Instructions Formerly [facility] VisitID: [id number] [place] [address] 85y, F Registration Date/Time: 09/20/2016 Acute abdominal pain of undetermined cause. INSTRUCTIONS Warnings: GENERAL WARNINGS: Return or contact your physician immediately if your condition worsens or changes unexpectedly, if not improving as expected, or if other problems arise. worsening symptoms. Prescription Medications: Protonix 40 mg tablets: Take 1 tablet orally once daily. Dispense thirty (30). No refills. Substitution is permissible. Understanding of the discharge instructions verbalized by patient. Follow-up with: Hua Emanuel MD, Gastroenterology, , [address] [place] [address] Ave[address] , [place], [address]; Galileo Quiroz MD, Gastroenterology, [address] [place] [address], [address] [place] [address], [address], [place], [address]; Jennie Matute MD, Gastroenteroloy, , [address] [place] [address] [address], [place], [address]; Fam Haider MD, Gastroenteroloy, , [address] [place] [address] [address], [place], [address]; Mundo Rodrigues MD, Gastroenteroloy, [address] [place] [address], [address] [place] [address] [address], [place], [address] Follow up in about two even if well. Call for an appointment. Summary of care provided to patient and family. ADDITIONAL INFORMATION Abdominal Pain, Unknown Cause (Female) The exact cause of your abdominal (stomach) pain is not certain. This does not mean that this is something to worry about, or the right tests were not done. Everyone likes to know the exact cause of the problem, but sometimes with abdominal pain, there is no clear-cut cause, and this could be a good thing. The good news is that your symptoms can be treated, and you will feel better. Your condition does not seem serious now; however, sometimes the signs of a serious problem may take more time to appear. For this reason,it is important for you to watch for any new symptoms, problems,or worsening of your condition. Over the next few days, the abdominal pain may come and go, or be continuous. Other common symptoms can include nausea and vomiting. Sometimes it can be difficult to tell if you feel nauseous, you may just feel bad and not associate that feeling with nausea. Constipation, diarrhea, and a fever may go along with the pain. The pain may continue even if treated correctly over the following days. Depending on how things go, sometimes the cause can become clear and may require further or different treatment. Additional evaluations, medications, or tests may be needed. Home care Your health care provider may prescribe medications for pain, symptoms, or an infection. Follow the health care provider's instructions for taking these medications. General care Rest until your next exam. No strenuous activities. Try to find positions that ease discomfort. A small pillow placed on the abdomen may help relieve pain. Something warm on your abdomen (such as a heating pad) may help, but be careful not to burn yourself. Diet Do not force yourself to eat, especially if having cramps, vomiting, or diarrhea. Water is important so you do not get dehydrated. Soup may also be good. Sports drinks may also help, especially if they are not too acidic. Make sure you don't drink sugary drinks as this can make things worse. Take liquids in small amounts. Do not guzzle them. Caffeine sometimes makes the pain and cramping worse. Avoid dairy products if you have vomiting or diarrhea. Don't eat large amounts at a time. Wait a few minutes between bites. Eat a diet low in fiber (called a low-residue diet). Foods allowed include refined breads, white rice, fruit and vegetable juices without pulp, tender meats. These foods will pass more easily through the intestine. Avoid whole-grain foods, whole fruits and vegetables, meats, seeds and nuts, fried or fatty foods, dairy, alcohol and spicy foods until your symptoms go away. Follow-up care Follow up with your health care provider as instructed, or if your pain does not begin to improve in the next 24 hours. When to seek medical care Seek prompt medical care if any of the following occur: Pain gets worse or moves to the right lower abdomen New or worsening vomiting or diarrhea Swelling of the abdomen Unable to pass stool for more than three days Fever of 100.4F (38C) or higher, or as directed by your healthcare provider. Blood in vomit or bowel movements (dark red or black color) Jaundice (yellow color of eyes and skin) Weakness, dizziness Chest, arm, back, neck or jaw pain Unexpected vaginal bleeding or missed period Call 911 Call emergency services if any of the following occur: Trouble breathing Confusion Fainting or loss of consciousness Rapid heart rate Seizure Pantoprazole Sodium Gastro-resistant tablet What is this medicine? PANTOPRAZOLE (gaitan TOE pra zole) prevents the production of acid in the stomach. It is used to treat gastroesophageal reflux disease (GERD), inflammation of the esophagus, and Florencio-Quinn syndrome. How should I use this medicine? Take this medicine by mouth. Swallow the tablets whole with a drink of water. Follow the directions on the prescription label. Do not crush, break, or chew. Take your medicine at regular intervals. Do not take your medicine more often than directed. Talk to your senior safety support manager regarding the use of this medicine in children. While this drug may be prescribed for children as young as 5 years for selected conditions, precautions do apply. What side effects may I notice from receiving this medicine? Side effects that you should report to your doctor or health patient care as soon as possible: allergic reactions like skin rash, itching or hives, swelling of the face, lips, or tongue bone, muscle or joint pain breathing problems chest pain or chest tightness dark yellow or brown urine dizziness fast, irregular heartbeat feeling faint or lightheaded fever or sore throat muscle spasm palpitations redness, blistering, peeling or loosening of the skin, including inside the mouth seizures tremors unusual bleeding or bruising unusually weak or tired yellowing of the eyes or skin Side effects that usually do not require medical attention (Report these to your doctor or health patient care if they continue or are bothersome.): constipation diarrhea dry mouth headache nausea What may interact with this medicine? Do not take this medicine with any of the following medications: atazanavir nelfinavir This medicine may also interact with the following medications: ampicillin delavirdine digoxin diuretics iron salts medicines for fungal infections like ketoconazole, itraconazole and voriconazole warfarin What if I miss a dose? If you miss a dose, take it as soon as you can. If it is almost time for your next dose, take only that dose. Do not take double or extra doses. Where should I keep my medicine? Keep out of the reach of children. Store at room temperature between 15 and 30 degrees C (59 and 86 degrees F). Protect from light and moisture. Throw away any unused medicine after the expiration date. What should I tell my health care provider before I take this medicine? They need to know if you have any of these conditions: liver disease low levels of magnesium in the blood an unusual or allergic reaction to omeprazole, lansoprazole, pantoprazole, rabeprazole, other medicines, foods, dyes, or preservatives or trying to get breast-feeding What should I watch for while using this medicine? It can take several days before your stomach pain gets better. Check with your doctor or health patient care if your condition does not start to get better, or if it gets worse. You may need blood work done while you are taking this medicine. You have been given the following additional information: Abdominal Pain, Unknown Cause, (Female) Pantoprazole Sodium Gastro-resistant tablet (Electronically signed by Raquel Caldwell A.R.N.P. 09/20/2016 21:17)
--- NOTE | 2016-09-22 13:18 | ED MED RECONCILIATION SUMMARY ---
Patient: JOSE STEVENSON Medication Reconciliation Report [facility] VisitID: [id number] [address] [place] [address] 85y, F Registration Date/Time: 09/20/2016 Weight: 59.4 kg Height/Length: 64 in. BMI: 22.5 ALLERGIES: Sulfa Antibiotics The patient's Home Medications are listed below: THE FOLLOWING MEDICATIONS NEED TO BE RECONCILED: ASA Oral 81 mg, daily Calcium 500 Oral Fluticasone Propionate Nasal, daily Folic Acid Oral (400 mcg), daily Glucosamine Oral (500 mg), daily Lovastatin Oral (40 mg), daily Methocarbamol Oral (500 mg), 3x a day Naproxen Oral 375 mg, 2x a day Omeprazole Oral 20 mg, daily PARoxetine HCl Oral (20 mg), daily Salsalate Oral (500 mg), bid Sucralfate Oral 1 gm, 4x a day Vicodin Oral The source(s) of the original Home Medication information: Not obtained. The following Medications were given to the patient in the Emergency Department: Toradol [IVP] IVP 30 mg, administered: 09/20/2016 6:24:00 PM GI COCKTAIL WHITE [PO] PO 30 mL, administered: 09/20/2016 7:48:00 PM The following Medications were prescribed to the patient: Protonix 40 mg tablets: Take 1 tablet orally once daily. Dispense thirty (30). No refills. Substitution is permissible. -- Raquel Caldwell A.R.N.P.
--- NOTE | 2016-09-22 13:18 | ED MAR SUMMARY ---
..... Medication Administration Record [facility] [address] [place] [address] Patient: JOSE STEVENSON Visit ID: [id number] 85y, F Weight: 59.4 kg Height/Length: 64 in BMI: 22.5 ALLERGIES: Sulfa Antibiotics Given 18:24 09/20/2016 Michael Cox RMylesNMyles Medication Administered: TORADOL [IVP], Dose: 30 mg IVP over 2 minute(s), Site: #1 left AC. Medication Ordered: Toradol IV 30 mg (NOW). Given 19:48 09/20/2016 Kimberlee Marley, RMylesNMyles Medication Administered: GI COCKTAIL WHITE [PO] (SIMETHICONE), Dose: 30 mL Oral Suspension PO. Medication Ordered: GI Cocktail WHITE PO 30 mL with Lidocaine Viscous Mouth/Throat 15 mL, Maalox Plus Oral 15 mL (NOW).
== END 2016-09-20 19:50 | disposition home or self-care (01) ==
LOC: ED SRH 15:37
DX: R10.9 Unspecified abdominal pain (principal); W18.39XA Other fall on same level, initial encounter; Y93.01 Activity, walking, marching and hiking; Y92.89 Other specified places as the place of occurrence of the external cause; Y99.8 Other external cause status; K21.9 Gastro-esophageal reflux disease without esophagitis; E78.5 Hyperlipidemia, unspecified; Z79.82 Long term (current) use of aspirin; Z79.899 Other long term (current) drug therapy; Z88.2 Allergy status to sulfonamides
CPT/HCPCS: 90004; 95059